=== PATIENT | male | born 1970 | race Caucasian/White ===

== ENCOUNTER 2024-10-11 17:43 | Outpatient (REF) | payer OTHER, SELFPAY ==
[2024-10-11 21:14] LABS: HCT 45.8 % (40.0-50.0); MCH 30.5 pg (27.0-33.0); MCHC 34.9 % (32.0-36.0); MCV 87 fL (80-95); MPV 10.7 fL (8.0-11.0); Platelet Count 243 10^3/uL (130-400); RBC 5.25 10^6/uL (4.36-5.78); RDW 11.7 % (11.8-14.1); RDW-SD 37.2 fL
[2024-10-11 21:36] LABS: Hemoglobin A1C 5.7 % (<5.7)
[2024-10-11 21:44] LABS: ALT 40 U/L (16-63); Albumin 4.1 g/dL (3.4-5.0); Alkaline Phosphatase 75 U/L (46-116); Anion Gap 8.8 mmol/L (3-11); BUN 22 mg/dL (7-18); CO2 28.2 mmol/L (21.0-32.0); CREATININE 1.1 mg/dL (0.70-1.30); Calcium 9.4 mg/dL (8.5-10.1); Chloride 104 mmol/L (98-107); Cholesterol 260 mg/dL (<200); Estimated GFR 80.27 (mL/min/1.73m2); Glucose 115 mg/dL (74-106); HDL Cholesterol 40 mg/dL (40-60); Potassium 4.4 mmol/L (3.5-5.1); Sodium 141 mmol/L (136-145); Total Protein 7.4 g/dL (6.4-8.2); Triglyceride 688 mg/dL (<150)
[2024-10-11 21:57] LABS: LDL CHOLESTEROL 130 mg/dL (<100)
[2024-10-11 22:28] LABS: AST 14 U/L (15-37)
[2024-10-14 10:23] LABS: PSA, Screening 0.6 ng/mL (<=3.5)
== END 2024-10-11 17:44 | disposition home or self-care (01) ==
LOC: LBN 17:43
PROVIDERS: PCP Nurse Practitioner Family; Visit Provider Nurse Practitioner Family
DX: Z12.5 Encounter for screening for malignant neoplasm of prostate (principal); Z00.00 Encounter for general adult medical examination without abnormal findings; Z13.1 Encounter for screening for diabetes mellitus; Z13.220 Encounter for screening for lipoid disorders; Z82.49 Family history of ischemic heart disease and other diseases of the circulatory system
CPT/HCPCS: 80053; 80061; 83721; 84153; 85027; 83036

== ENCOUNTER 2024-10-23 04:22 | Outpatient (CLI) | payer OTHER, SELFPAY ==
[2024-10-23 12:29] LABS: Calculated LDL 137 mg/dL (<100); Cholesterol 228 mg/dL (<200); HDL Cholesterol 48 mg/dL (40-60); Triglyceride 215 mg/dL (<150)
== END 2024-10-23 04:23 | disposition home or self-care (01) ==
LOC: LOS 04:23
PROVIDERS: PCP Nurse Practitioner Family; Visit Provider Nurse Practitioner Family
DX: E78.1 Pure hyperglyceridemia (principal)
CPT/HCPCS: 36415; 80061